=== PATIENT | male | born 1965 | race Caucasian/White ===

== ENCOUNTER 2016-11-17 08:10 | Emergency (ER) | payer OTHER ==
[2016-11-17 09:17] LABS: HEMOGLOBIN 12.9 gm/dl (14.0-17.5); RED BLOOD COUNT 4.13 M/UL (4.20-5.50); WHITE BLOOD COUNT 7.3 K/UL (4.5-11.0)
[2016-11-17 09:37] LABS: BUN/CREATININE RATIO 27 (0-10)
== END 2016-11-17 13:20 | disposition home or self-care (01) ==
LOC: ER1 08:10
PROVIDERS: Emergency Medicine
DX: S20.211A Contusion of right front wall of thorax, initial encounter (principal); R31.9 Hematuria, unspecified; R91.1 Solitary pulmonary nodule; K83.8 Other specified diseases of biliary tract; K59.00 Constipation, unspecified; Y04.0XXA Assault by unarmed brawl or fight, initial encounter; Y92.009 Unspecified place in unspecified non-institutional (private) residence as the place of occurrence of the external cause
CPT/HCPCS: 36415; 71101; 72100; 80053; 81001; 85025; 96374; 96375; 99284; J2270; J2405; J7050; Q9962

== ENCOUNTER → 2020-08-22 | Outpatient (CLI) | payer OTHER ==
[~2020-08-22] MED LIST: BENTYL 10MG CAP10 MG PO; CLARITIN 10MG T10 MG PO; FAMOTIDINE20 MG PO; FLEXERIL 10 MG10 MG PO; GABAPENTIN400 MG PO; HYDROXYZINE HCL25 MG PO; HYDROXYZINE PAM25 MG PO; IBU800 MG PO; IBUPROFEN400 MG PO; LORADAMED10 MG PO; NICOTINE PATCH1 EAC2 TD; PEPCID20 MG PO; PROTONIX 40 MG40 M1 PO; QUETIAPINE FUM200 MG PO; ROPINIROLE HCL1 MG PO; TIZANIDINE HCL4 MG PO; TYLENOL 8 HOUR650 MG PO; ZANAFLEX 4 MG TA4 MG PO
== END ==
LOC: CT 08-08 14:30
DX: K46.9 Unspecified abdominal hernia without obstruction or gangrene (principal); K59.00 Constipation, unspecified
CPT/HCPCS: Q9967

== ENCOUNTER → 2020-09-04 | Day surgery (SDC) | payer OTHER | END | disposition home or self-care (01) | LOC: OR 05:56 | DX: K57.30 Diverticulosis of large intestine without perforation or abscess without bleeding (principal); K21.9 Gastro-esophageal reflux disease without esophagitis; F17.210 Nicotine dependence, cigarettes, uncomplicated; Z20.822 Contact with and (suspected) exposure to COVID-19; Z79.899 Other long term (current) drug therapy | CPT/HCPCS: J2704; J7030 ==